=== PATIENT | male | born 1980 ===

== ENCOUNTER → 2021-11-24 | Outpatient (CLI) | payer OTHER | END | disposition home or self-care (01) | LOC: LAB 11:00 → LAB SHORT 11:00 | DX: L08.0 Pyoderma (principal) | CPT/HCPCS: 87070; 87077; 87147; 87186; 87205 ==

== ENCOUNTER → 2025-10-14 | Outpatient (CLI) | payer OTHER | LOC: LAB 11:12 → LAB SHORT 11:12 | DX: L57.8 Other skin changes due to chronic exposure to nonionizing radiation (principal); D22.39 Melanocytic nevi of other parts of face | CPT/HCPCS: 88305 ==